=== PATIENT | male | born 1995 | race Caucasian/White ===

== ENCOUNTER 2019-11-04 11:23 | Emergency (ER) | payer OTHER ==
[~2019-11-04] VITALS: Ht 167.6 cm; Wt 61.5 kg
[2019-11-04 11:32] VITALS: BP 132/94
[2019-11-04] MEDS ORDERED: ibuprofen 200mg tablet PO ONE (12:10)
== END 2019-11-04 12:52 | disposition home or self-care (01) ==
LOC: ER 11:25
DX: S60.022A Contusion of left index finger without damage to nail, initial encounter (principal); S80.02XA Contusion of left knee, initial encounter; M25.512 Pain in left shoulder; M25.532 Pain in left wrist; V49.88XA Car occupant (driver) (passenger) injured in other specified transport accidents, initial encounter; Y93.89 Activity, other specified; Y92.413 State road as the place of occurrence of the external cause; Y99.9 Unspecified external cause status
CPT/HCPCS: 29125; 73030; 73110; 73130; 73564; 99283